=== PATIENT | male | born 1980 | race Caucasian/White ===

== ENCOUNTER 2023-10-18 03:17 | Emergency (ER) | payer OTHER ==
[~2023-10-18] VITALS: Ht 175.3 cm; Wt 61.7 kg
[2023-10-18 04:05] VITALS: BP 128/84; TEMP 98
[2023-10-18] MEDS ORDERED: POLY10DR OP (04:16)
[2023-10-18 04:20] VITALS: O2SAT 99
== END 2023-10-18 04:21 | disposition home or self-care (01) ==
LOC: ER 03:20
DX: H10.89 Other conjunctivitis (principal); I10 Essential (primary) hypertension; Z90.49 Acquired absence of other specified parts of digestive tract

== ENCOUNTER 2023-10-23 18:23 | Emergency (ER) | payer OTHER ==
[~2023-10-23] VITALS: Ht 175.3 cm; Wt 61.7 kg
[~2023-10-23 18:23] MED LIST: POLY10DR OP
[2023-10-23 18:40] VITALS: TEMP 98.1
[2023-10-23] MEDS ORDERED: FLUORESCEIN SODIUM OPHTH 1 EA STRIP ONE (18:42)
[2023-10-23] MEDS ORDERED: TETRAcaine 5 ML BOTTLE ONE (18:42)
[2023-10-23] MEDS: FLUORESCEIN SODIUM OPHTH 1 EA STRIP OP ONE (18:57)
[2023-10-23] MEDS ORDERED: CIPR5DRO EACHEYE (19:04)
[2023-10-23 19:10] VITALS: BP 134/90; O2SAT 98
== END 2023-10-23 19:10 | disposition home or self-care (01) ==
LOC: ER 18:23
DX: H10.89 Other conjunctivitis (principal); I10 Essential (primary) hypertension; F17.200 Nicotine dependence, unspecified, uncomplicated; Z79.899 Other long term (current) drug therapy; Z90.49 Acquired absence of other specified parts of digestive tract

== ENCOUNTER 2025-04-14 19:30 | Emergency (ER) | payer OTHER ==
[~2025-04-14] VITALS: Ht 175.3 cm; Wt 72.6 kg
[~2025-04-14 19:30] MED LIST changes: +CIPR5DRO EACHEYE
[2025-04-14 20:00] LABS: PLATELET COUNT (AUTO) 376 K/uL (150-450); RED BLOOD CELL COUNT(AUTO) 4.71 MIL/uL (4.5-6.0); RED CELL DISTRIBUTION WIDTH 13.7 % (11.5-15.0); WHITE BLOOD COUNT (AUTO) 11.4 K/uL (4.3-11.0)
[2025-04-14 20:08] LABS: CALCIUM, SERUM 9.0 mg/dL (8.5-10.1); CREATININE 1.1 mg/dL (0.6-1.3); SODIUM SERUM 141 mmol/L (136-145); UREA NITROGEN, BLOOD 21 mg/dL (7-18)
[2025-04-14 20:21] LABS: NT-PRO BNP 12 pg/mL (0-125)
[2025-04-14] MEDS ORDERED: KETO10TA2 PO (20:55)
[2025-04-14] MEDS ORDERED: CYCL5TAB PO (20:55)
[2025-04-14 21:01] VITALS: BP 131/85; TEMP 98; O2SAT 97
== END 2025-04-14 21:01 | disposition home or self-care (01) ==
LOC: ER 19:34
DX: R07.89 Other chest pain (principal); M94.0 Chondrocostal junction syndrome [Tietze]; R05.9 Cough, unspecified; R06.02 Shortness of breath; F17.210 Nicotine dependence, cigarettes, uncomplicated; I10 Essential (primary) hypertension; Z87.19 Personal history of other diseases of the digestive system; Z90.49 Acquired absence of other specified parts of digestive tract
CPT/HCPCS: 36415; 71045-TC; 80048-TC; 83880; 84484-TC; 85025-TC